=== PATIENT | male | born 1990 | race Caucasian/White ===

== ENCOUNTER 2023-11-22 00:31 | Day surgery (SDC) | payer OTHER, SELFPAY ==
[2023-11-07 10:14] VITALS: BMI 43.3
[2023-11-22 13:21] VITALS: BP 142/92; PULSE 106; RESP 18; TEMP 36.4; O2SAT 98; BMI 42.3
[2023-11-22] MEDS: LACTATED RINGERS 1,000 ML 150 ML IV CONT (13:24)
--- NOTE | 2023-11-22 13:26 | WPDANESEPPF ---
Anes - Initial Pre Proc Eval Procedure: Operation Date: 11/22/23 14:30 Proposed Procedures p Colonoscopy - Misael Pritchard MD Date/Time: 11/22/23 13:26 Surgeon: Misael Pritchard MD Pre Op Diagnosis: Hemorrhage of anus and rectum,rectal bleeding Patient Data Age: 33 Gender: M Height: 1.83 m Weight: 141.7 kg Last Vital Signs Temp 36.4 C L 11/22/23 13:21 Pulse 106 H 11/22/23 13:21 Resp 18 11/22/23 13:21 BP 142/92 H 11/22/23 13:21 Pulse Ox 98 11/22/23 13:21 O2 Del Method Room Air 11/22/23 13:21 Allergies Allergy/AdvReac Type Severity Reaction Status Date / Time No Known Allergies Allergy Verified 11/22/23 13:19 Home Medications Medication Instructions Recorded Confirmed Type tirzepatide (weight loss) 2.5 2.5 mg subcut WEEKLY 11/07/23 11/22/23 History mg/0.5 mL subcutaneous pen injector (Zepbound) Patient hx anesthesia problems: none Family hx anesthesia problems: none Results Review: All pre-operative results and documents have been reviewed as part of the pre-operative evaluation. [facility] Past Medical History Medical History (Updated 11/22/23 @ 13:27 by Shoaib Souza MD) Depression Morbid obesity Social History Social History Years smoked: 1 Smoking status: Current every day smoker Tobacco type: cigarettes Alcohol intake: never Substance use type: marijuana Other substance usage details: vaping Living arrangements: with roommate(s) Spiritual care concerns: No Anes - Eval Final PreProcedure Day of Procedure 11/22/23 13:26 Patient weight: morbidly obese Heart: regular rate and rhythm Lungs: clear to auscultation Airway: Mallampati scale class II Neurological: alert and oriented Last oral intake: >/= 8 hours ASA classification: III Emergent: no Anesthetic plan: proceed Anesthesia type and monitoring: general GIVS and standard monitoring Results Review: All pre-operative results and documents have been reviewed as part of the pre-operative evaluation. Informed Consent: The patient's anesthetic plan and its attendant risks and benefits were discussed with the patient/family/POA. Questions were solicited and answers provided to the satisfaction of the patient/family/POA.
--- NOTE | 2023-11-22 13:41 | PM.HPGS ---
History of Present Illness History of Present Illness Consent: Risks, benefits, and alternatives have been discussed and questions answered. Patient agrees to proceed with procedure. Chief complaint: Hemorrhage of anus and rectum,rectal bleeding Narrative: Berlin Lundberg is a 33 year old male with intermittent rectal bleeding, never had colonoscopy Review of Systems Review of Systems: All systems reviewed & are unremarkable except as noted in HPI and below PMFSH Past Medical History Medical History (Updated 11/22/23 @ 13:42 by Misael Pritchard MD) Depression Morbid obesity Rectal bleeding Social History Social History Years smoked: 1 Smoking status: Current every day smoker Tobacco type: cigarettes Alcohol intake: never Substance use type: marijuana Other substance usage details: vaping Living arrangements: with roommate(s) Spiritual care concerns: No Meds Home Medications and Allergies Home Medications Medication Instructions Recorded Confirmed Type tirzepatide (weight loss) 2.5 2.5 mg subcut WEEKLY 11/07/23 11/22/23 History mg/0.5 mL subcutaneous pen injector (Zepbound) Allergies Allergy/AdvReac Type Severity Reaction Status Date / Time No Known Allergies Allergy Verified 11/22/23 13:19 Vital Signs Vital Signs - 24 hr 11/22/23 13:21 Temperature 97.5 F L Pulse Rate 106 H Respiratory Rate 18 Blood Pressure 142/92 H Pulse Oximetry 98 Oxygen Delivery Room Air Exam Const: General: comfortable and no acute distress HENMT: Face/Nose/Sinus: Normal nares present Eyes: General: appearance normal, both eyes and all related structures Neck: Neck: no JVD Resp: Auscultation: clear to auscultation bilaterally Cardio: Rate: regular rate Rhythm: regular rhythm GI: Inspection: non-distended GI Palp: Yes Soft to palpation Skin: General skin exam: normal color Neuro: General: gait normal Speech: normal speech Extrem: General: normal to inspection Psych: Mental Status: mental status grossly normal Assessment and Plan Assessment and plan (1) Rectal bleeding: Code(s): K62.5 - Hemorrhage of anus and rectum Status: Acute Assessment and Plan: colonoscopy
[2023-11-22 14:01] VITALS: BP 125/85; PULSE 102; RESP 21; O2SAT 97
[2023-11-22 14:11] VITALS: BP 141/75; PULSE 89; RESP 23; O2SAT 98
[2023-11-22 14:21] VITALS: BP 153/92; PULSE 93; RESP 25; O2SAT 98
== END 2023-11-22 14:26 | disposition home or self-care (01) ==
PROVIDERS: PCP Nurse Practitioner Adult Health; Visit Provider Internal Medicine Gastroenterology
PROC: 0DJD8ZZ Inspection of Lower Intestinal Tract, Via Natural or Artificial Opening Endoscopic (ICD-10-PCS; CPT 45378; principal; 2023-11-22 14:30)
DX: K64.8 Other hemorrhoids (principal); Z79.85 Long-term (current) use of injectable non-insulin antidiabetic drugs; F17.210 Nicotine dependence, cigarettes, uncomplicated; F12.90 Cannabis use, unspecified, uncomplicated; E66.01 Morbid (severe) obesity due to excess calories; Z68.41 Body mass index [BMI] 40.0-44.9, adult
CPT/HCPCS: 45378; J2704; J7120

== ENCOUNTER 2025-01-12 08:33 | Outpatient (CLI) | payer OTHER, SELFPAY ==
--- OUTSIDE RECORDS SUMMARY | 2025-01-12 08:39 | XMS_ITS | Referral Summary ---
Author Organization [facility] Address [address] [place] [address] Care Team Providers Care Support Representative Name Role Phone Isra Fisher MD Primary Care Provider [phone] Allergies No known active allergies Medications cyclobenzaprine (FLEXERIL) 10 mg tablet Take 1 tablet (10 mg total) by mouth 3 (three) times a day as needed for muscle spasms 12 tablet 0 Active Additional Information Patient not taking.Reported on 07/24/2023 ibuprofen (ADVIL,MOTRIN) 800 mg tablet Take 1 tablet (800 mg total) by mouth 3 (three) times a day 21 tablet 0 Active citalopram (CeleXA) 20 mg tablet Take 1 tablet (20 mg total) by mouth every morning 2 Active docusate sodium (COLACE) 100 mg capsule Take 1 capsule (100 mg total) by mouth 2 (two) times a day 2 Active omeprazole (PriLOSEC) 20 mg capsule Take 20 mg by mouth daily 2 Active traZODone (DESYREL) 50 mg tablet Take 50 mg by mouth nightly 2 Active albuterol HFA (PROVENTIL HFA,VENTOLIN HFA,PROAIR HFA) 90 mcg/actuation inhalerIndicati ons:Bronchitis Inhale 2 puffs every 4 (four) hours as needed for wheezing or shortness of breath 8 g 3 Active benzonatate (TESSALON) 200 mg capsuleIndicati ons:Bronchitis Take 1 capsule (200 mg total) by mouth 3 (three) times a day as needed for cough 30 capsule 3 Active naproxen (NAPROSYN) 500 mg tablet Take 1 tablet (500 mg total) by mouth 2 (two) times a day as needed for pain Take with food. 30 tablet 4 Active Active Problems No known active problems Immunizations Immunization Administration Dates Next Due Tdap 02/20/2013 Social History Tobacco Use Types Packs/Day Years Used Date Smoking Tobacco: Never Smokeless Tobacco: Never Tobacco Cessation:Counseling Given: Not Answered Alcohol Use Standard Drinks/Week Comments Yes 0 (1 standard drink = 0.6 oz pur e alcohol) Personal Safety Answer Date Recorded Have you ever been in or are you currently in a harmful physical or emotional relationship or is someone making you feel afraid or unsafe? Denies 11/27/2023 Sex and Gender Information Value Date Recorded Sex Assigned at Not on file Legal Sex Male 5:20 AM CONDENSER CLEANER Gender Identity Not on file Sexual Orientation Not on file Last Filed Vital Signs Vital Sign Reading Time Taken Comments Blood Pressure 132/87 11/27/2023 12:00 PM CDT Pulse 75 11/27/2023 12:00 PM CDT Temperature 36.6 C (97.8 F) 11/27/2023 8:27 AM CDT Respiratory Rate 18 11/27/2023 12:00 PM CDT Oxygen Saturation 97% 11/27/2023 12:00 PM CDT Inhaled Oxygen Concentration - - Weight 142.9 kg (315 lb) 11/27/2023 8:27 AM CDT Height 182.9 cm (6') 07/24/2023 9:23 AM CONDENSER CLEANER Body Mass Index 42.72 07/24/2023 9:23 AM CONDENSER CLEANER Plan of Treatment Not on file [facility] [employer] Care Teams Support Representative Relationship Specialty Start Date End Date Isra Fisher MD [address] [address] PCP - General 01/18/20
--- OUTSIDE RECORDS SUMMARY | 2025-01-12 08:39 | XMS_ITS | Clinical Summary ---
Author Organization [facility] Address [address] [place] [address] Phone Care Team Providers Care Lever Tender Name Role Phone Isra Fisher MD Primary Care Provider [phone] Allergies No known active allergies Medications ergocalciferol (VITAMIN D) 34961 UNIT Capsule TAKE ONE CAPSULE BY MOUTH ON SATURDAY AND Saturday 2 Active cyanocobalamin 1000 MCG Tablet TAKE 1 TABLET BY MOUTH EVERY MORNING 2 Active omeprazole (PriLOSEC) 20 MG CAPSULE DELAYED RELEASEIndicati ons:Dyspepsia Take 1 Capsule by mouth daily. 90 Capsule 3 2 Active Additional Information Patient not taking.Reported on 05/06/2023 citalopram (CeleXA) 20 MG Tablet Take 1 Tablet by mouth every morning. 90 Tablet 3 2 Active Additional Information Patient not taking.Reported on 05/06/2023 traZODone (DESYREL) 50 MG Tablet Take 1 Tablet by mouth nightly. 90 Tablet 3 2 Active Additional Information Patient not taking.Reported on 05/06/2023 docusate sodium (COLACE) 100 MG Capsule Take 1 Capsule by mouth 2 times daily. 60 Capsule 3 2 Active Additional Information Patient not taking.Reported on 05/06/2023 predniSONE (DELTASONE) 20 MG TabletIndicatio ns:Acute midline low back pain with left-sided sciatica Take 3 tabs po QD x 3 days and then take 2 tabs po qd x 3 days and then one tab po QD x 3 days and then stop. 18 Tablet 3 Active HYDROcodone-ang taminophen (NORCO) 5-325 MG TabletIndicatio ns:Acute midline low back pain with left-sided sciatica Take 1 Tablet by mouth every 6 hours as needed for Moderate or more severe pain or Severe pain. 28 Tablet 3 Active gabapentin (NEURONTIN) 300 MG CapsuleIndicati ons:Acute midline low back pain with left-sided sciatica Take one tab po QHS x 1 days and then take one tab po bid x 1 days and then take 1 tab po tid 90 Capsule 3 Active Active Problems Problem Noted Date Diagnosed Date Encounter for general adult medical examination with abnormal findings 02/03/2019 Constipation 02/03/2019 Diarrhea 02/03/2019 Resolved Problems Problem Noted Date Diagnosed Date Resolved Date Generalized abdominal pain 02/03/2019 0 10/03/2022 Immunizations Immunization Administration Dates Next Due Influenza Vaccine 05/16/2017 Influenza Vaccine, Quadrivalent, PF 05/08/2021,0 05/10/2020,09/29/2019 TDAP Vaccine 03/20/2017,02/20/2013 Family History Medical History Relation Name Comments No Known Problems Brother No Known Problems Father Heart Attack Maternal Grandfather Chronic Obstructive Pulmonary Disease Maternal Grandmo ther No Known Problems Mother No Known Problems Sister Relation Name Status Comments Brother Alive Father Alive Maternal Grandfather Maternal Grandmother Alive Mother Alive Paternal Grandfather Paternal Grandmother Sister Alive Social History Tobacco Use Types Packs/Day Years Used Date Smoking Tobacco: Never Smokeless Tobacco: Never Tobacco Cessation:Counseling Given: Yes Alcohol Use Standard Drinks/Week Comments Yes 6 (1 standard drink = 0.6 oz pur e alcohol) not much ocasional PHQ-2 Answer Date Recorded Total Score - Questions 1-9 0 04/13 Education Answer Date Recorded What is the highest level of school you have completed or the highest degree you have received? Bachelor's degree (e.g., BA, AB, BS) 09/23/2021 Sexually Active Control Partners Comments Not Currently Sex and Gender Information Value Date Recorded Sex Assigned at Not on file Legal Sex Male 11:48 AM CDT Gender Identity Not on file Sexual Orientation Not on file Last Filed Vital Signs Vital Sign Reading Time Taken Comments Blood Pressure 148/100 05/06/2023 11:26 AM CDT Pulse 84 05/06/2023 11:26 AM CDT Temperature 36 C (96.8 F) 05/06/2023 11:26 AM CDT Respiratory Rate 16 05/06/2023 11:26 AM CDT Oxygen Saturation 97% 05/06/2023 11:26 AM CDT Inhaled Oxygen Concentration - - Weight 152.4 kg (336 lb) 05/06/2023 11:26 AM CDT Height 182.9 cm (6') 05/06/2023 11:26 AM CDT Body Mass Index 45.57 05/06/2023 11:26 AM CDT Plan of Treatment Health Maintenance Due Date Last Done Comments Hepatitis C Virus (HCV) Screening 1988 Hepatitis B Immunization (1 of 3 - 19+ 3-dose series) 02/17/2007 Influenza Immunization (Season Ended) 2025 04/18/2023, 05/08/2021, 05/10/2020, Additional history exists Td Immunization Every 10 Years (Adults With 1 Tdap) 03/20/2027 03/20/2017, 02/20/2013 Respiratory Syncytial Virus (RSV) Immunization (Adult) (1 - 1-dose 75+ series) 02/17/2063 SARS-COV-2 Immunization Discontinued 08/09/20 21, 11/19/2020, 10/25/2020 Human Papillomavirus (HPV) Immunization Aged Out No longer eligible based on patient's age to complete this topic Meningococcal Immunization (ACWY) Aged Out No longer eligible based on patient's age to complete this topic Pneumococcal Immunization Combined Aged Out No longer eligible based on patient's age to complete this topic Rotavirus Immunization Aged Out No lo nger eligible based on patient's age to complete this topic [place] [address] [place] [address] [facility] Care Teams Lever Tender Relationship Specialty Start Date End Date Isra Fisher MD PCP - General Family Medicine 02/03/19 02/05/25
--- OUTSIDE RECORDS SUMMARY | 2025-01-12 08:39 | XMS_ITS | Clinical Summary ---
Author Organization [facility] [place] Address [address] [place] [address] Care Team Providers Care Rn Progressive Care Unit Name Role Phone Genna Garcia MD Primary Care Provider [phone] Allergies No known active allergies Medications omeprazole (PriLOSEC) 20 mg Capsule, Delayed Release(E.C.)In dications:Gastr oesophageal reflux disease, unspecified whether esophagitis present Take 1 Capsule (20 mg) by mouth daily. 30 Capsule 4 Active meloxicam (MOBIC) 7.5 mg tabletIndicatio ns:Arthralgia of both hands Take 1 Tablet (7.5 mg) by mouth 1 time daily as needed for Pain. Take with food. 60 Tablet 4 Active tirzepatide, weight loss, (Zepbound) 10 mg/0.5 mL Pen InjectorIndicat ions:Severe obesity (BMI 35.0-39.9) with comorbidity (CMS/HCC) Inject 10 mg by subcutaneous injection every 7 days. DISPENSE as ZEPBOUND, please. 6 mL 1 4 Active Active Problems Problem Noted Date Diagnosed Date Low vitamin B12 level 07/06/2024 Prediabetes 03/23/2024 Hypertriglyceridemia 03/23/2024 GERD (gastroesophageal reflux disease) 4 Morbid obesity with body mass index of 40.0-49.9 11/19/2023 Resolved Problems Problem Noted Date Diagnosed Date Resolved Date Snoring 11/19/2023 03/23/2024 Overview (03/23/2024): Improved with wt loss Rectal bleeding 11/19/2023 03/23/2024 Immunizations Immunization Administration Dates Next Due INFLUENZA VACCINE QUADRIVALENT 3 YR UP PF IM 12/2016 INFLUENZA VACCINE TRIVALENT SPLIT VIRUS, (6 MOS UP), 0.5ML (PF), IM 05/21/2024 Family History Medical History Relation Name Comments No Known Problems Brother No Known Problems Father Heart Attack Maternal Grandfather Dejuan Heart Disease Maternal Grandfather Dejuan Lung Cancer Maternal Grandmother Erin Alvarenga Unknown Maternal Grandmother Erin Alvarenga Anxiety Mother Angela Bipolar Disorder Mother Angela Depression Mother Angela Unknown Paternal Grandfather Unknown Paternal Grandmother No Known Problems Sister Relation Name Status Comments Brother Alive Daughter Alive Father Alive Maternal Grandfather Dejuan Maternal Grandmother Erin Alvarenga Alive Mother Angela Alive Paternal Grandfather Alive Paternal Grandmother Alive Sister Alive Son Alive Social History Tobacco Use Types Packs/Day Years Used Date Smoking Tobacco: Some Days Cigars Smokeless Tobacco: Never Tobacco Cessation:Ready to Q uit: Not Asked; Counseling Given: Not Answered Comments:Rare use cigars. No more than once per month. Alcohol Use Standard Drinks/Week Comments Not Currently 0 (1 standard drink = 0.6 oz pur e alcohol) rarely Sex and Gender Information Value Date Recorded Sex Assigned at Male 10/16/2023 3:05 PM SOIL TECHNICIAN Legal Sex Male 11:00 AM CDT Gender Identity Male 10/16/2023 3:05 PM SOIL TECHNICIAN Sexual Orientation Straight 10/16/2023 3: 05 PM SOIL TECHNICIAN Occupation Industry Job Start Date Job End Date Not on file Not on file Not on file Not on file Last Filed Vital Signs Vital Sign Reading Time Taken Comments Blood Pressure 124/72 07/01/2024 8:20 AM SOIL TECHNICIAN Pulse 81 07/01/2024 8:20 AM SOIL TECHNICIAN Temperature 36.2 C (97.2 F) 07/01/2024 8:20 AM SOIL TECHNICIAN Respiratory Rate 18 07/01/2024 8:20 AM SOIL TECHNICIAN Oxygen Saturation 98% 07/01/2024 8:20 AM SOIL TECHNICIAN Inhaled Oxygen Concentration - - Weight 132 kg (291 lb) 07/01/2024 8:20 AM SOIL TECHNICIAN Height 182.9 cm (6') 07/01/2024 8:20 AM SOIL TECHNICIAN Body Mass Index 39.47 07/01/2024 8:20 AM SOIL TECHNICIAN Plan of Treatment Health Maintenance Due Date Last Done Comments HEPATITIS B VACCINES (1 of 3 - 19+ 3-dose series) 02/17/2007 DTAP/TDAP/TD VACCINES (3 - Td or Tdap) 03/20/2027 03/20/2017, 02/20/2013 Pre-Diabetes and Diabetes Screening 07/01/2027 07/01/2024, 12/03/2023 COLORECTAL SCREENING 12/02/2033 12/03/2023 INFLUENZA VACCINE Completed 05/21/2024, , 05/10/2020, Additional history exists HPV VACCINES Aged Out No longer eligi ble based on patient's age to complete this topic Procedures Procedure Name Priority Date/Time Associated Diagnosis Comments HEMOGLOBIN A1C Routine 07/01/2024 9:00 AM SOIL TECHNICIAN Prediabetes from Last 3 Months or Most Recently Relevant to Health Maintenance Results * (ABNORMAL) HEMOGLOBIN A1C (07/01/2024 9:00 AM SOIL TECHNICIAN) HEMOGLOBIN A1C 6.0(H) <5.7 % of total Hgb [facility] Comment: For someone without known diabetes, a hemoglobin A1c value between 5.7% and 6.4% is consistent with prediabetes and should be confirmed with a follow-up test. For someone with known diabetes, a value <7% indicates that their diabetes is well controlled. A1c targets should be individualized based on duration of diabetes, age, comorbid conditions, and other considerations. This assay result is consistent with an increased risk of diabetes. Currently, no consensus exists regarding use of hemoglobin A1c for diagnosis of diabetes for children. ESTIMATED AVERAGE GLUCOSE (MG/DL) 126 mg/dL [facility] ESTIMATED AVERAGE GLUCOSE (MMOL/L) 7.0 mmol/L [facility] Comment: Test Performed at: [facility] [id number] [address] [id number] Sirena Thomas MD Blood 07/01/2024 9:00 AM SOIL TECHNICIAN 07/02/2024 6:53 AM SOIL TECHNICIAN Felicitas Restrepo ANP CHEMISTRY ORDERABLES Final R esult [facility] [phone] [facility] [id number] [address] [id number] from Last 3 Months or Most Recently Relevant to Health Maintenance Insurance * Guarantor: [employer] D (C) Account Type Relation to Patient Date of Phone Billing Address Corporate Employer ATTN: MASTER [employer] [address] * Guarantor: [employer] Account Type Relation to Patient Date of Phone Billing Address Corporate Employer ATTN: [employer] [address] [address] Care Teams Rn Progressive Care Unit Relationship Specialty Start Date End Date Genna Garcia MD [address] [place] [address] [place] [address] PCP - General Internal Medicine 02/24/24
--- OUTSIDE RECORDS SUMMARY | 2025-01-12 08:39 | XMS_ITS | Clinical Summary ---
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 Gender Identity Not on file Sexual Orientation Not on file Obstetrics History Last Filed Vital Signs Vital Sign Reading [...] Height 182.9 cm (6') 07/24/2023 9:23 AM DOMESTIC VIOLENCE ADVOCATE Body Mass Index 42.72 07/24/2023 9:23 AM DOMESTIC VIOLENCE ADVOCATE Plan of Treatment Health Maintenance Due Date Last Done Comments Depression Screening 1988 Hepatitis C Screening 1990 Varicella Vaccines (1 of 2 - 13+ 2-dose series) 02/17/2001 Hepatitis B Screening 02/17/2006 Regular Well Visit/Exam 18-64 02/17/2006 Influenza Vaccine (Season Ended) 2025 05/08/2021, 05/10/2020, 09/29/2019, Additional history exists DTaP/Tdap/Td Vaccine (3 - Td or Tdap) 03/20/2027 03/20/2017, 02/20/2013 HPV Vaccines Aged Out No longer eligi ble based on patient's age to complete this topic Pneumococcal vaccine <65 Aged Out No longer eligible based on patient's age to complete this topic Insurance [employer] Care Teams Hotel Superintendent Relationship Specialty Start Date End Date Isra Fisher MD [address] [address] PCP - General 01/18/20
[2025-01-12 22:58] LABS: Alanine Aminotransferase 24 U/L (6-50); Albumin Level 4.6 g/dL (3.5-5.1); Alkaline Phosphatase 78 U/L (38-126); Anion Gap 10 mmol/L (4-12); Aspartate Amino Transferase 65 U/L (17-59); Bilirubin,Total 0.7 mg/dL (0.2-1.3); Blood Urea Nitrogen 12 mg/dL (9-20); Carbon Dioxide 26 mmol/L (22-30); Chloride 103 mmol/L (98-107); Cholesterol 150 mg/dL (0-200); Estimated Glomerular Filt Rate > 60; Glucose 76 mg/dL (65-110); HDL Direct 29 mg/dL; Sodium 139 mmol/L (137-145); Total Protein 8.3 g/dL (6.3-8.2); Triglycerides 173 mg/dL (<150)
[2025-01-12 23:10] LABS: LDL Cholesterol Direct 78 mg/dL
[2025-01-12 23:43] LABS: Hemoglobin A1C 5.4 % (<5.7)
== END 2025-01-12 08:34 | disposition home or self-care (01) ==
LOC: ANHBWCLAB 08:36
PROVIDERS: PCP Nurse Practitioner Adult Health; Visit Provider Nurse Practitioner Adult Health
DX: E78.5 Hyperlipidemia, unspecified (principal); E79.0 Hyperuricemia without signs of inflammatory arthritis and tophaceous disease; R73.9 Hyperglycemia, unspecified
CPT/HCPCS: 36415; 80053; 80061; 83036; 84550